=== PATIENT | female | born 1935 | race Caucasian/White ===

== ENCOUNTER → 2016-09-17 | Outpatient (CLI) | payer MEDICARE, OTHER ==
[~2016-09-17] MED LIST: /WARF2TA PO; ACET65TA PO; CALC600T10 PO; DIGO0.12 PO; DIGO0.257 PO; DIGOXIN PO; DIOV320T PO; DIOV80TA3 PO; DIOVAN; HYDR25TAB PO; HYDROCHLOROTHIZIDE PO; LEXA1TAB PO; LEXAPRO PO; LIPI10TA PO; LIPITOR; LOPR50TA PO; METROPROLOL PO; MULT1TAB10 PO; MULTIVIT PO; NEXI40CA PO; NEXIUM PO; OYST500T PO; PERC5TAB6 PO; PERC5TAB8 PO; POTA10CA PO; WARF-58 PO; [UNRECOGNIZED DRUG - CODE]; diclofenac TOP; metoprolol OR; tylenol OR
--- NOTE | 2016-09-17 14:40 | REPMRS ---
Patient History The patient states she has not had a clinical breast exam in over a year. No known family history of cancer. 2 benign excisional biopsies of the right breast. Digital Woman Screen Mammo: September 17, 2016 - Exam #: [id number] Bilateral CC and MLO view(s) were taken. Technologist: Vijaya Major, Technologist Prior study comparison: October 18, 2014, digital woman screen mammo performed at [facility]. April 28, 2013, digital woman screen mammo performed at [facility]. FINDINGS: There are scattered fibroglandular densities. There has been no change in the appearance of the mammogram from the prior studies. There is a mild amount of residual fibroglandular tissue which is fairly symmetric. There is no interval development of dominant mass, architectural distortion, or clustered microcalcification suggestive of malignancy. ASSESSMENT: BI-RADS/ACR category 1 mammogram. Negative. Recommendation Routine screening mammogram in 1 year (for women over age 40). This mammogram was interpreted with the aid of an FDA-approved computer-aided dectection system. Electronically Signed By: Erick Tamez MD 09/17/16 3502
== END ==
LOC: M WHC 13:37
PROVIDERS: ATTEND Internal Medicine
DX: Z12.31 Encounter for screening mammogram for malignant neoplasm of breast (principal); Z92.89 Personal history of other medical treatment